=== PATIENT | female | born 1990 | race African-American/Black ===

== ENCOUNTER 2017-08-18 13:03 | Emergency (ER) | payer OTHER ==
[2017-08-18] MEDS ORDERED: Metoclopramide IV* 5 MG/ML 2 ML VIAL IV ONE (13:23)
[2017-08-18] MEDS ORDERED: diPHENhydraMINE IV* 50 MG/ML 1 ml VIAL (BENADRYL) IV ONE (13:23)
[2017-08-18] MEDS ORDERED: NS 0.9% 1000 ML* 1,000 ML IV ONE (13:23)
[2017-08-18 13:53] LABS: ABS Basophils 0.1 10^3/ul (0-0.2); ABS Eosinophils 0 10^3/ul (0-0.6); ABS Lymphocytes 0.5 10^3/ul (1.0-4.8); ABS Monocytes 0.3 10^3/ul (0-0.8); ABS Neutrophils 11.1 10^3/ul (1.5-7.7); ABS Nucleated RBC 0 10^3/ul; Eosinophil % 0 % (0-6); Hematocrit 40 % (35-47); Hemoglobin 13.6 g/dl (12.0-16.0); Lymphocyte % 4.5 % (25-47); Mean Corpuscular HGB Conc 34 g/dl (31-36); Mean Corpuscular Hemoglobin 29 pg (27-31); Mean Corpuscular Volume 87 fL (80-97); Mean Platelet Volume 7.7 um3 (7.4-10.4); Nucleated Red Blood Cells % 0; Platelet Count 291 10^3/ul (150-450); Red Blood Count 4.62 10^6/ul (4.0-5.4); Red Cell Distribution Width 13 % (10.5-15); White Blood Count 12.1 10^3/ul (3.5-10.8)
[2017-08-18 14:18] LABS: EGFR Non-African American 101.3 (>60)
[2017-08-18] MEDS ORDERED: Ketorolac INJ* 30 MG/ML 1 ML VIAL IV PUSH ONE (14:30)
--- NOTE | 2017-08-18 15:28 | RAD ---
INDICATION: Headache and dizziness. COMPARISON: There are no prior studies available for comparison. TECHNIQUE: Contiguous axial sections of the brain were obtained from the skull base to the vertex without contrast. FINDINGS: The ventricles, cisterns and sulci are within normal limits. No significant focal abnormality or mass effect is seen. There is no evidence for hemorrhage. No significant focal osseous abnormality is seen. The visualized portion of the paranasal sinuses and mastoid air cells appear clear. IMPRESSION: NO EVIDENCE FOR ACUTE INTRACRANIAL ABNORMALITY.
--- NOTE | 2017-08-18 16:33 | ED ---
Too Parra Stephanie, scribed for Alon Wynne MD on 08/18/17 at 1332 . Abdominal Pain/Female - HPI Summary HPI Summary: The pt is a 68 y/o F presenting to the ED with c/o abd pain that began at 07:00 today. The pt states she woke up with abd pain and attempted to have a BM when she began to feel nauseous and vomited. Symptoms include BRYANT and room-spinning dizziness. The pts symptoms are aggravated by movement and opening her eyes. The pt reports a similar incident last year. - History of Current Complaint Chief Complaint: EDDizziness Stated Complaint: N/V/DIZZINESS/HEADACHE Time Seen by Provider: 08/18/17 13:16 Hx Obtained From: Patient ?: No Onset/Duration: Sudden Onset, Lasting Hours - 6, Still Present Timing: Constant Severity Currently: Mild Pain Intensity: 0 Pain Scale Used: 0-10 Numeric Location: Diffuse Radiates: No Aggravating Factor(s): Movement, Other: - opening eyes Alleviating Factor(s): Nothing Associated Signs and Symptoms: Positive: Nausea, Vomiting Allergies/Adverse Reactions: Allergies Allergy/AdvReac Type Severity Reaction Status Date / Time No Known Allergies Allergy Verified 08/18/17 13:12 PMH/Surg Hx/FS Hx/Imm Hx Respiratory History: Reports: Hx Asthma Sensory History: Denies: Hx Legally Blind EENT History: Denies: Hx Deafness - Surgical History Surgery Procedure, Year, and Place: NONE Infectious Disease History: No Infectious Disease History: Denies: Traveled Outside the [place] in Last 30 Days - Family History Known Family History: Negative: Renal Disease - Social History Occupation: Employed Part-time Lives: With Family Alcohol Use: Occasionally Hx Substance Use: No Substance Use Type: Reports: None Hx Tobacco Use: No Smoking Status (MU): Never Smoked Tobacco Have You Smoked in the Last Year: No Review of Systems Negative: Fever Positive: Abdominal Pain, Vomiting, Nausea Neurological: Other - room-spinning dizziness Positive: Headache All Other Systems Reviewed And Are Negative: Yes Physical Exam - Summary Physical Exam Summary: Appearance: Mildly ill- appearing, mild pain distress, she has difficulty keeping her eyes open Skin: warm, dry, reflects adequate perfusion Head/face: normal Eyes: EOMI, LAINE, no nystagmus ENT: normal Neck: supple, non-tender Respiratory: CTA, breath sounds present Cardiovascular: RRR, pulses symmetrical Abdomen: non-tender, soft Bowel Sounds: present Musculoskeletal: normal, strength/ROM intact Neuro: normal, sensory motor intact, A&Ox3 Triage Information Reviewed: Yes Vital Signs On Initial Exam: Initial Vitals Temp Pulse Resp BP Pulse Ox 98.4 F 48 16 123/54 100 08/18/17 13:04 08/18/17 13:04 08/18/17 13:04 08/18/17 13:04 08/18/17 13:04 Vital Signs Reviewed: Yes Diagnostics - Vital Signs Vital Signs Temp Pulse Resp BP Pulse Ox 08/18/17 13:04 98.4 F 48 16 123/54 100 - Laboratory Lab Results: Lab Results 08/18/17 08/18/17 Range/Units 13:40 13:40 WBC 12.1 H (3.5-10.8) 10^3/ul RBC 4.62 (4.0-5.4) 10^6/ul Hgb 13.6 (12.0-16.0) g/dl Hct 40 (35-47) % MCV 87 (80-97) fL MCH 29 (27-31) pg MCHC 34 (31-36) g/dl RDW 13 (10.5-15) % Plt Count 291 (150-450) 10^3/ul MPV 7.7 (7.4-10.4) um3 Neut % (Auto) 92.2 H (38-83) % Lymph % (Auto) 4.5 L (25-47) % Walsh % (Auto) 2.3 (0-7) % Eos % (Auto) 0 (0-6) % Baso % (Auto) 1.0 (0-2) % Absolute Neuts (auto) 11.1 H (1.5-7.7) 10^3/ul Absolute Lymphs (auto) 0.5 L (1.0-4.8) 10^3/ul Absolute Monos (auto) 0.3 (0-0.8) 10^3/ul Absolute Eos (auto) 0 (0-0.6) 10^3/ul Absolute Basos (auto) 0.1 (0-0.2) 10^3/ul Absolute Nucleated RBC 0 10^3/ul Nucleated RBC % 0 Sodium 139 (139-145) mmol/L Potassium 4.0 (3.5-5.0) mmol/L Chloride 108 (101-111) mmol/L Carbon Dioxide 22 (22-32) mmol/L Anion Gap 9 (2-11) mmol/L BUN 12 (6-24) mg/dL Creatinine 0.69 (0.51-0.95) mg/dL Est GFR ( Amer) 130.3 (>60) Est GFR (Non-Af Amer) 101.3 (>60) BUN/Creatinine Ratio 17.4 (8-20) Glucose 148 H (70-100) mg/dL Calcium 9.4 (8.6-10.3) mg/dL Beta HCG, Quant < 0.60 mIU/mL Result Diagrams: 08/18/17 13:40 08/18/17 13:40 Lab Statement: Any lab studies that have been ordered have been reviewed, and results considered in the medical decision making process. - CT Brain CT Interpretation: No Acute Changes CT Interpretation Completed By: Radiologist - NO EVIDENCE FOR ACUTE INTRACRANIAL ABNORMALITY. ED physician has reviewed this report. Re-Evaluation - Re-Evaluation First Eval Re-Evaluation Time: 14:31 Change: Worse - The pt is complaining of a pounding BRYANT. Second Eval Re-Evaluation Time: 16:06 Change: Improved - The pt states her BRYNAT has resolved. Abdominal Pain Fem Course/Dx - Course Course Of Treatment: Patient with headache, nausea and abdominal pain as well as vomiting. She states that she had this once before but it is really uncomfortable and hard to get history from. Following medication negative head CT she was able to tell us that she had headache associated with vomiting and abdominal cramping once before and was treated with full relief. Her headache is a throbbing/pounding in nature and was relieved with Toradol/Reglan and Benadryl. Following treatment here she was able to rest and actually fell asleep. She does not have a primary care physician and so she was given a referral as well as [facility] with [facility]. They will follow her up promptly - Diagnoses Differential Diagnosis: Positive: Other - Vertigo, migraine headache, generalized headache, Provider Diagnoses: Migraine headache, Dizziness Discharge - Sign-Out/Discharge Documenting (check all that apply): Discharge/Admit/Transfer - discharge - Discharge Plan Condition: Improved Disposition: HOME Prescriptions: Promethazine TAB* [Phenergan Tab*] 25 mg PO Q6H PRN #20 tab PRN Reason: headache/nausea Patient Education Materials: Migraine Headache (ED) Referrals: [facility] [Outside] [facility] [place] [facility]ERR[facility] [Outside] Additional Instructions: Return with fever, persistent vomiting, severe headache, new symptoms, worse or other concerns. Care clinic can provide follow-up for you even if you do not have a doctor. They will see you in the next 1-2 days. Call for an appointment. - Billing Disposition and Condition Condition: IMPROVED Disposition: Home The documentation as recorded by the Too saenz Stephanie accurately reflects the service I personally performed and the decisions made by me, Alon Wynne MD.
[2017-08-18 16:40] VITALS: BP 116/74
== END 2017-08-18 16:39 | disposition home or self-care (01) ==
LOC: ED 13:03
DX: G43.909 Migraine, unspecified, not intractable, without status migrainosus (principal); R42 Dizziness and giddiness
CPT/HCPCS: 36415; 70450; 80048; 84702; 85025; 96361; 96374; 96375; 99282; J1200; J1885; J2765

== ENCOUNTER → 2017-11-04 20:25 | Emergency (ER) | payer OTHER | END | disposition left against medical advice (07) | LOC: ED 20:25 | DX: R11.2 Nausea with vomiting, unspecified (principal); Z53.21 Procedure and treatment not carried out due to patient leaving prior to being seen by health care provider ==

== ENCOUNTER 2018-05-10 05:48 | Emergency (ER) | payer SELFPAY ==
--- NOTE | 2018-05-10 05:56 | ED ---
GI/ HPI - HPI Summary HPI Summary: Pt. is a 27 y.o female who presents to the ER for N/V and upper abd. pain x 4 days. Pt. states she ate at [employer] of Tuesday and started to feel sick shortly after. No associated sxs of diarrhea, fever, urinary sxs. Pt. also notes dizziness and states she has a hx of vertigo. Pt. otherwise denies sore throat, sinus congestion, cough. Sxs are moderate in severity. No other past medical hx or surgeries. No current modifying factors. - History of Current Complaint Chief Complaint: EDNauseaVomitDiarrh Time Seen by Provider: 05/10/18 05:56 Stated Complaint: VOMITING/ABD PAIN Hx Obtained From: Patient Pain Intensity: 10 - Allergy/Home Medications Allergies/Adverse Reactions: Allergies Allergy/AdvReac Type Severity Reaction Status Date / Time No Known Allergies Allergy Verified 08/18/17 13:12 PMH/Surg Hx/FS Hx/Imm Hx Previously Healthy: Yes Respiratory History: Reports: Hx Asthma Sensory History: Denies: Hx Legally Blind, Hx Deafness Opthamlomology History: Denies: Hx Legally Blind - Surgical History Surgery Procedure, Year, and Place: NONE Infectious Disease History: No Infectious Disease History: Denies: Traveled Outside the [place] in Last 30 Days - Family History Known Family History: Positive: Non-Contributory Negative: Renal Disease - Social History Occupation: Unemployed Lives: With Family Alcohol Use: Occasionally Hx Substance Use: No Substance Use Type: Reports: None Hx Tobacco Use: No Smoking Status (MU): Never Smoked Tobacco Have You Smoked in the Last Year: No Review of Systems Constitutional: Negative Negative: Fever, Chills Eyes: Negative ENT: Negative Cardiovascular: Negative Respiratory: Negative Positive: Abdominal Pain, Vomiting, Nausea. Negative: Diarrhea Genitourinary: Negative Negative: dysuria, discharge, frequency Skin: Negative Neurological: Negative All Other Systems Reviewed And Are Negative: Yes Physical Exam Triage Information Reviewed: Yes Vital Signs On Initial Exam: Initial Vitals Temp Pulse Resp BP Pulse Ox 99 F 72 18 128/84 98 05/10/18 05:51 05/10/18 05:51 05/10/18 05:51 05/10/18 05:51 05/10/18 05:51 Vital Signs Reviewed: Yes Appearance: Positive: Well-Appearing - Pt. sitting up in bed, appears uncomfortable but nontoxic. Skin: Positive: Warm, Dry Head/Face: Positive: Normal Head/Face Inspection Eyes: Positive: Normal, EOMI ENT: Positive: TMs normal Neck: Positive: Supple Respiratory/Lung Sounds: Positive: Clear to Auscultation, Breath Sounds Present Cardiovascular: Positive: Normal, RRR Abdomen Description: Positive: CVA Tenderness (L), Other: - Abd. is soft with pain on palpation to epigastric region. No pain at mcburney's point. No rebound tenderness or guarding. Musculoskeletal: Positive: Normal, Strength/ROM Intact Neurological: Positive: Normal, CN Intact II-III Psychiatric: Positive: Affect/Mood Appropriate Diagnostics - Vital Signs Vital Signs Temp Pulse Resp BP Pulse Ox 05/10/18 05:51 99 F 72 18 128/84 98 - Laboratory Result Diagrams: 05/10/18 06:10 05/10/18 06:10 Lab Statement: Any lab studies that have been ordered have been reviewed, and results considered in the medical decision making process. GIGU Course/Dx - Course Course Of Treatment: Pt. presenting for upper abd. pain and N/V. She has a benign abd. exam. She is afebrile. Basic started on IV fluids and zofran. Labs show mild elevation in WBC and K of 3.3. On re-exam pt. is resting more comfortably and has had no further vomiting. U/A negative for infection, will send for culture. Phenergan sent to pharmacy. Advised close f.u with PCP and return to ER if sxs change or worsen. - Diagnoses Differential Diagnoses - Female: Gastritis, Gastroenteritis (Viral), Gastroenteritis (Bacterial), Gerd, Hepatitis, Pancreatitis, , Urinary Tract Infection Provider Diagnoses: Nausea & vomiting Discharge - Sign-Out/Discharge Documenting (check all that apply): Patient Departure Patient Received Moderate/Deep Sedation with Procedure: No - Discharge Plan Condition: Improved Disposition: HOME Prescriptions: Prochlorperazine TAB* [Compazine Tab*] 10 mg PO Q6H PRN #12 tab PRN Reason: Nausea Patient Education Materials: Gastroenteritis (ED), Acute Nausea and Vomiting ( ED) Referrals: Bola Clifford MD [Primary Care Provider] - Additional Instructions: Call PCP today for a close follow up appointment Zofran as directed for nausea Increase fluids such as water and gatorade Will call if urine culture is positive Return to ER if symptoms change or worsen - Billing Disposition and Condition Condition: IMPROVED Disposition: Home
[2018-05-10] MEDS ORDERED: NS 0.9% 1000 ML** 1,000 ML IV ONE (05:57)
[2018-05-10] MEDS ORDERED: Ondansetron INJ* 2 MG/ML VIAL IV ONE (05:57)
[2018-05-10 06:16] LABS: ABS Basophils 0.1 10^3/ul (0-0.2); ABS Eosinophils 0 10^3/ul (0-0.6); ABS Lymphocytes 3.3 10^3/ul (1.0-4.8); ABS Monocytes 0.7 10^3/ul (0-0.8); ABS Neutrophils 7.1 10^3/ul (1.5-7.7); ABS Nucleated RBC 0 10^3/ul; Eosinophil % 0.1 %; Hematocrit 45 % (35-47); Hemoglobin 15.2 g/dl (12.0-16.0); Lymphocyte % 29.8 %; Mean Corpuscular HGB Conc 34 g/dl (31-36); Mean Corpuscular Hemoglobin 29 pg (27-31); Mean Corpuscular Volume 86 fL (80-97); Mean Platelet Volume 7.3 fL (7.4-10.4); Nucleated Red Blood Cells % 0.1; Platelet Count 291 10^3/ul (150-450); Red Blood Count 5.25 10^6/ul (4.00-5.40); Red Cell Distribution Width 14 % (10.5-15); White Blood Count 11.2 10^3/ul (3.5-10.8)
[2018-05-10] MEDS ORDERED: Ketorolac INJ* 30 MG/ML 1 ML VIAL IV PUSH ONE (06:21)
[2018-05-10 06:36] LABS: Albumin 4.6 g/dL (3.2-5.2); Albumin/Globulin Ratio 1.4 (1-3); BUN/Creatinine Ratio 22.4 (8-20); Calcium 9.8 mg/dL (8.6-10.3); EGFR African American 109.6 (>60); EGFR Non-African American 90.6 (>60); Globulin 3.4 g/dL (2-4); Potassium 3.3 mmol/L (3.5-5.0); Total Bilirubin 1.1 mg/dL (0.2-1.0)
[2018-05-10 06:41] LABS: HCG Pregnancy 0.79 mIU/mL
[2018-05-10] MEDS ORDERED: Potassium Chlor TAB* 20 MEQ TAB.ER PO ONE (07:11)
[2018-05-10 08:42] LABS: Urine Appearance Cloudy; Urine Bilirubin Negative (Negative); Urine Blood 2+ (Negative); Urine Color Amber; Urine Glucose Negative (Negative); Urine Ketones 1+ (Negative); Urine Nitrite Negative (Negative); Urine Protein 1+(30 mg/dL) (Negative); Urine Specific Gravity 1.029 (1.010-1.030); Urine Urobilinogen Positive (Negative)
[2018-05-10 08:50] LABS: Urine Squamous Epithelial Cell Present (Absent)
[2018-05-10 08:52] LABS: Urine Bacteria Absent (Absent); Urine Red Blood Cell 1+(3-5/hpf) (Absent); Urine White Blood Cell Trace(0-5/hpf) (Absent)
[2018-05-10 09:10] VITALS: BP 105/61
== END 2018-05-10 09:22 | disposition home or self-care (01) ==
LOC: ED 05:48
DX: R11.2 Nausea with vomiting, unspecified (principal); R10.10 Upper abdominal pain, unspecified
CPT/HCPCS: 36415; 80053; 81003; 81015; 83690; 84702; 85025; 87086; 96374; 96375; 96376; 99282; A9270-GY; J1885; J2405

== ENCOUNTER 2019-02-09 22:20 | Emergency (ER) | payer OTHER ==
[2019-02-09] MEDS ORDERED: PROCHLORPERAZINE INJ 5 MG/ML 2 ML VIAL IV ONE (23:08)
[2019-02-09] MEDS ORDERED: NS 0.9% 1000 ML** 1,000 ML IV ONE (23:08)
[2019-02-09] MEDS ORDERED: diPHENhydraMINE IV* 50 MG/ML 1 ml VIAL (BENADRYL) SLOW PUSH ONE (23:08)
[2019-02-09] MEDS ORDERED: Meclizine TAB* 12.5 MG PO ONE (23:43)
--- NOTE | 2019-02-09 23:47 | ED ---
Headache - HPI Summary HPI Summary: 28 year old female presents with nausea vomiting dizziness and vertigo for the past 2 days. She states she has history of migraines and vertigo. She states only difference is that this has last longer than normal. She states she normal takes zofran and it goes away but did not. States her headache is in the front of her head. She states she did have fever yesterday. She admits to sinus congestion. She denies any sore throat. Admits to cough. No chest or shortness breath. No neck stiffness. She admits to photophobia. No change in vision. - History Of Current Complaint Chief Complaint: EDHeadache Stated Complaint: VOMITING/DIZZINESS PER PT Time Seen by Provider: 02/09/19 22:50 - Allergies/Home Medications Allergies/Adverse Reactions: Allergies Allergy/AdvReac Type Severity Reaction Status Date / Time No Known Allergies Allergy Verified 02/09/19 22:23 PMH/Surg Hx/FS Hx/Imm Hx Endocrine/Hematology History: Denies: Hx Anticoagulant Therapy Respiratory History: Reports: Hx Asthma Sensory History: Denies: Hx Legally Blind, Hx Deafness Opthamlomology History: Denies: Hx Legally Blind - Surgical History Surgery Procedure, Year, and Place: NONE Infectious Disease History: No Infectious Disease History: Denies: Traveled Outside the [place] in Last 30 Days - Family History Known Family History: Positive: Non-Contributory Negative: Renal Disease - Social History Alcohol Use: Occasionally Hx Substance Use: No Substance Use Type: Reports: Marijuana Hx Tobacco Use: No Smoking Status (MU): Never Smoked Tobacco Have You Smoked in the Last Year: No Review of Systems Negative: Fever Negative: Chest Pain Negative: Shortness Of Breath Positive: Vomiting, Nausea Positive: Headache All Other Systems Reviewed And Are Negative: Yes Physical Exam Triage Information Reviewed: Yes Vital Signs On Initial Exam: Initial Vitals Temp Pulse Resp BP Pulse Ox 97.2 F 58 16 105/60 99 02/09/19 22:23 02/09/19 22:23 02/09/19 22:23 02/09/19 22:23 02/09/19 22:23 Vital Signs Reviewed: Yes Appearance: Positive: Well-Appearing Skin: Positive: Warm, Dry Head/Face: Positive: Normal Head/Face Inspection Eyes: Positive: Normal, EOMI, LAINE, Conjunctiva Clear ENT: Positive: Pharynx normal, TMs normal Respiratory/Lung Sounds: Positive: Clear to Auscultation, Breath Sounds Present Cardiovascular: Positive: Normal, RRR Abdomen Description: Positive: Nontender, Soft Bowel Sounds: Positive: Present Musculoskeletal: Positive: Normal Neurological: Positive: Sensory/Motor Intact, Alert, Oriented to Person Place, Time, CN Intact II-III, Finger to Nose Psychiatric: Positive: Normal Procedures - Sedation Patient Received Moderate/Deep Sedation with Procedure: No Diagnostics - Vital Signs Vital Signs Temp Pulse Resp BP Pulse Ox 02/09/19 22:23 97.2 F 58 16 105/60 99 - Laboratory Result Diagrams: 02/10/19 00:54 02/10/19 00:47 Lab Statement: Any lab studies that have been ordered have been reviewed, and results considered in the medical decision making process. Re-Evaluation - Re-Evaluation First Eval Re-Evaluation Time: 00:14 Change: Unchanged Comment: pain still present Second Eval Re-Evaluation Time: 01:30 Change: Improved Comment: feeling better, wants to go home Headache Course/Dx - Course Course Of Treatment: 28 year old female presents with nausea vomiting dizziness and vertigo for the past 2 days. She states she has history of migraines and vertigo. She states only difference is that this has last longer than normal. She states she normal takes zofran and it goes away but did not. States her headache is in the front of her head. She states she did have fever yesterday. She admits to sinus congestion. She denies any sore throat. Admits to cough. No chest or shortness breath. No neck stiffness. She admits to photophobia. No change in vision. On exam has normal neuro exam. she is photophobic. neg nuchal rigidity. wbc normal. Gave her Compazine and Benadryl with minimal improvement. We'll give Toradol. patient feeling better. will discharge with reglan. told follow up with primary. patient understand and agrees with plan. - Diagnoses Differential Diagnosis/HQI/PQRI: Migraine, Tension Headache, Viral Syndrome Provider Diagnoses: Headache, Vertigo, Vomiting Discharge ED - Sign-Out/Discharge Documenting (check all that apply): Patient Departure - Discharge Plan Condition: Good Disposition: HOME Prescriptions: Meclizine TAB* [Antivert 12.5 TAB*] 25 mg PO TID #12 tab Metoclopramide TAB* [Reglan TAB*] 10 mg PO Q6H PRN #12 tab PRN Reason: Nausea Patient Education Materials: Acute Headache (ED) Referrals: Bola Clifford MD [Primary Care Provider] - Additional Instructions: Take Tylenol or ibuprofen for pain every 6 hours take reglan every 6 hours for nausea as needed take meclizine up to three times a day for vertigo Follow up with primary within 5 days Return to ED if develop any new or worsening symptoms - Billing Disposition and Condition Condition: GOOD Disposition: Home
[2019-02-10] MEDS ORDERED: Ketorolac INJ* 30 MG/ML 1 ML VIAL IV PUSH ONE (00:15)
[2019-02-10 01:12] LABS: ABS Lymphocytes 0.7 10^3/ul (1.0-4.8); ABS Monocytes 0.2 10^3/ul (0-0.8); ABS Neutrophils 9.3 10^3/ul (1.5-7.7); Hematocrit 38 % (35-47); Hemoglobin 13.1 g/dL (12.0-16.0); Lymphocyte % 6.5 %; Mean Corpuscular HGB Conc 34 g/dL (31-36); Mean Corpuscular Hemoglobin 30 pg (27-31); Mean Corpuscular Volume 86 fL (80-97); Mean Platelet Volume 7.2 fL (7.4-10.4); Nucleated Red Blood Cells % 0.1; Platelet Count 249 10^3/uL (150-450); Red Blood Count 4.43 10^6 /uL (3.70-4.87); Red Cell Distribution Width 13 % (10-15); White Blood Count 10.2 10^3/uL (3.5-10.8)
[2019-02-10 01:17] LABS: Albumin 3.8 g/dL (3.2-5.2); Anion Gap 13 mmol/L (2-11); CO2 Carbon Dioxide 17 mmol/L (22-32); Chloride 106 mmol/L (101-111); Potassium 4.1 mmol/L (3.5-5.0); Sodium 136 mmol/L (135-145)
[2019-02-10 01:18] LABS: Calcium 8.6 mg/dL (8.6-10.3)
[2019-02-10 01:23] LABS: HCG Pregnancy < 0.60 mIU/mL
[2019-02-10 01:32] LABS: ALT 28 U/L (7-52); AST 27 U/L (13-39); Albumin/Globulin Ratio 1.3 (1-3); Alkaline Phosphatase 82 U/L (34-104); BUN/Creatinine Ratio 23.4 (8-20); Blood Urea Nitrogen 15 mg/dL (6-24); C Reactive Protein 25.16 mg/L (<8.01); EGFR African American 132.7 (>60); EGFR Non-African American 109.7 (>60); Globulin 2.9 g/dL (2-4); Glucose 171 mg/dL (70-100); Total Protein 6.6 g/dL (6.4-8.9)
[2019-02-10 01:46] LABS: Magnesium 1.8 mg/dL (1.9-2.7)
[2019-02-10 01:57] VITALS: BP 124/79
== END 2019-02-10 01:56 | disposition home or self-care (01) ==
LOC: ED 22:20
DX: R11.10 Vomiting, unspecified (principal); R51 Headache; R42 Dizziness and giddiness; J45.909 Unspecified asthma, uncomplicated
CPT/HCPCS: 36415; 80053; 83735; 84702; 85025; 86140; 96361; 96374; 96375; 99282; A9270-GY; J0780; J1200; J1885